=== PATIENT | male | born 1950 | race Caucasian/White ===

== ENCOUNTER 2018-06-14 10:49 | Day surgery (SDC) | payer MEDICARE ==
[2018-06-14] MEDS: NS 1,000 ML IV (11:00)
[2018-06-14] MEDS ORDERED: LIDOCAINE 2% INJ 100 MG/5 ML SDV (FOR ANES.) As Ordered (12:25)
[2018-06-14] MEDS ORDERED: PROPOFOL 200 MG/20 ML VIAL As Ordered ×2 (12:25)
== END 2018-06-14 14:25 | disposition home or self-care (01) ==
LOC: M OPP 14:25
DX: Z12.11 Encounter for screening for malignant neoplasm of colon (principal); K64.0 First degree hemorrhoids; K57.30 Diverticulosis of large intestine without perforation or abscess without bleeding; K22.2 Esophageal obstruction; Z86.010 Personal history of colon polyps; Z79.82 Long term (current) use of aspirin; Z79.899 Other long term (current) drug therapy
CPT/HCPCS: G0105

== ENCOUNTER → 2018-12-06 | Outpatient (REF) | payer MEDICARE ==
[~2018-12-06] MED LIST: ASPI81TA26 PO; LISI-538 PO; NEXI20CA PO; ROSU5TAB4 PO
== END ==
LOC: M SFHCPLAZ 09:34
PROVIDERS: ATTEND Dermatology
DX: L30.8 Other specified dermatitis (principal); R21 Rash and other nonspecific skin eruption

== ENCOUNTER → 2020-08-17 | Outpatient (CLI) | payer MEDICARE ==
[~2020-08-17] MED LIST changes: -ROSU5TAB4 PO; +ROSU5TAB5 PO
== END ==
LOC: M LABSMTC 11:59
PROVIDERS: ATTEND Anesthesiology
DX: Z01.812 Encounter for preprocedural laboratory examination (principal); Z20.822 Contact with and (suspected) exposure to COVID-19

== ENCOUNTER 2020-08-22 06:48 | Day surgery (SDC) | payer MEDICARE ==
[~2020-08-22] VITALS: Ht 172.7 cm; Wt 94.3 kg
[~2020-08-22 06:48] MED LIST changes: +NS 1,000 ML IV ONE
[2020-08-22] MEDS ORDERED: fentaNYL 100 MCG/2 ML INJECTION (J3010) As Ordered ONE (07:25)
[2020-08-22] MEDS ORDERED: LIDOCAINE 2% 100MG/5ML SDV (FOR ANES.) As Ordered ONE (07:25)
[2020-08-22] MEDS ORDERED: propofoL 200 MG/20 ML VIAL As Ordered ONE (07:25)
--- NOTE | 2020-08-22 07:49 | ROOR ---
Patient Name: Domenico Guaman Procedure Date: 08/22/2020 7:23 AM Date of : 1950 Age: 70 Room: [facility] Gender: Male Note Status: Finalized Procedure: Upper GI endoscopy + Balloon Dilatation Indications: Dysphagia Providers: Harry Gomes MD Referring MD: RYLIE GUAMAN MD Requesting Provider: Medicines: Monitored Anesthesia Care Complications: No immediate complications. Procedure: Pre-Anesthesia Assessment: - The heart rate, respiratory rate, oxygen saturations, blood pressure, adequacy of pulmonary ventilation, and response to care were monitored throughout the procedure. The Endoscope was introduced through the mouth, and advanced to the second part of duodenum. The upper GI endoscopy was accomplished without difficulty. The patient tolerated the procedure well. Findings: The Z-line was regular and was found 40 cm from the incisors. A severe Schatzki ring was found at the gastroesophageal junction. A TTS dilator was passed through the scope. Dilation with an 18-19-20 mm balloon dilator was performed to 20 mm. The dilation site was examined and showed complete resolution of luminal narrowing. A small hiatal hernia was present. No other significant abnormalities were identified in a careful examination of the stomach. The exam of the duodenum was otherwise normal. Impression: - Z-line regular, 40 cm from the incisors. - Severe Schatzki ring. Dilated. - Small hiatal hernia. - No specimens collected. - The examination was otherwise normal. Recommendation: - Discharge patient to home. - Follow an antireflux regimen. - Continue present medications. - Return to referring physician. - Repeat upper endoscopy PRN for retreatment. - The findings and recommendations were discussed with the patient. Procedure Code(s): --- Professional --- 90769, Esophagogastroduodenoscopy, flexible, transoral; with transendoscopic balloon dilation of esophagus (less than 30 mm diameter) Diagnosis Code(s): --- Professional --- K22.2, Esophageal obstruction K44.9, Diaphragmatic hernia without obstruction or gangrene R13.10, Dysphagia, unspecified CPT copyright 2019 [employer]. All rights reserved. The codes documented in this report are preliminary and upon roll repairer review may be revised to meet current compliance requirements. Harry Gomes MD Harry Gomes MD 08/22/2020 7:48:52 AM Electronically signed by Harry Gomes MD Number of Addenda: 0 Note Initiated On: 08/22/2020 7:23 AM Estimated Blood Loss: Estimated blood loss: none.
--- NOTE | 2020-08-22 08:06 | ROOR ---
Patient Name: Domenico Guaman Procedure Date: 08/22/2020 7:25 AM Date of : 1950 Age: 70 Room: [facility] Gender: Male Note Status: Finalized Procedure: Total Colonoscopy to Cecum + Biopsy Polypectomy Indications: High risk colon cancer surveillance: Personal history of colonic polyps, Last colonoscopy: 2017 Providers: Harry Gomes MD Referring MD: RYLIE GUAMAN MD Requesting Provider: Medicines: Monitored Anesthesia Care Complications: No immediate complications. Procedure: Pre-Anesthesia Assessment: - The heart rate, respiratory rate, oxygen saturations, blood pressure, adequacy of pulmonary ventilation, and response to care were monitored throughout the procedure. The Colonoscope was introduced through the anus and advanced to the cecum, identified by appendiceal orifice and ileocecal valve. The colonoscopy was performed without difficulty. The patient tolerated the procedure well. The quality of the bowel preparation was excellent. Findings: The perianal and digital rectal examinations were normal. Non-bleeding internal hemorrhoids were found during retroflexion. The hemorrhoids were small and Grade I (internal hemorrhoids that do not prolapse). Multiple small and large-mouthed diverticula were found in the recto-sigmoid colon, sigmoid colon and descending colon. A small polyp was found at 70 cm proximal to the anus. The polyp was sessile. The polyp was removed with a jumbo cold forceps. Resection and retrieval were complete. The exam was otherwise without abnormality on direct and retroflexion views. Impression: - Non-bleeding internal hemorrhoids. - Diverticulosis in the recto-sigmoid colon, in the sigmoid colon and in the descending colon. - One small polyp at 70 cm proximal to the anus, removed with a jumbo cold forceps. Resected and retrieved. - The examination was otherwise normal on direct and retroflexion views. - The exam was otherwise normal to the cecum. Recommendation: - Patient has a contact number available for emergencies. The signs and symptoms of potential delayed complications were discussed with the patient. Return to normal activities tomorrow. Written discharge instructions were provided to the patient. - High fiber diet. - Discharge patient to home. - Continue present medications. - Await pathology results. - Telephone GI clinic for pathology results in 1 week. - Repeat colonoscopy in 5 years for surveillance. - Return to referring physician. - The findings and recommendations were discussed with the patient. Procedure Code(s): --- Professional --- 36098, Colonoscopy, flexible; with biopsy, single or multiple Diagnosis Code(s): --- Professional --- Z86.010, Personal history of colonic polyps K64.0, First degree hemorrhoids K63.5, Polyp of colon K57.30, Diverticulosis of large intestine without perforation or abscess without bleeding CPT copyright 2019 [employer]. All rights reserved. The codes documented in this report are preliminary and upon clinical laboratory service teacher review may be revised to meet current compliance requirements. Harry Gomes MD Harry Gomes MD 08/22/2020 8:06:14 AM Electronically signed by Harry Gomes MD Number of Addenda: 0 Note Initiated On: 08/22/2020 7:25 AM Estimated Blood Loss: Estimated blood loss: none.
[2020-08-22 08:25] VITALS: BP 116/68
== END 2020-08-22 10:15 | disposition home or self-care (01) ==
LOC: M OPP 06:48
PROVIDERS: ATTEND Internal Medicine Gastroenterology
DX: Z12.11 Encounter for screening for malignant neoplasm of colon (principal); Z86.010 Personal history of colon polyps; R13.10 Dysphagia, unspecified; D12.6 Benign neoplasm of colon, unspecified; K64.0 First degree hemorrhoids; K57.30 Diverticulosis of large intestine without perforation or abscess without bleeding; K22.2 Esophageal obstruction; K44.9 Diaphragmatic hernia without obstruction or gangrene; R12 Heartburn; Z79.899 Other long term (current) drug therapy
CPT/HCPCS: 43249; 45380; 88305; J3010

== ENCOUNTER 2021-04-02 09:10 | Outpatient (RCR) | payer MEDICARE ==
[~2021-04-02 09:10] MED LIST changes: -LISI-538 PO; +LISI20TA33 PO; -NS 1,000 ML IV ONE
== END 2021-04-18 ==
LOC: M ST 09:10
PROVIDERS: ATTEND Otolaryngology
DX: R49.8 Other voice and resonance disorders (principal); F80.89 Other developmental disorders of speech and language